=== PATIENT | male | born 1995 | race Caucasian/White ===

== ENCOUNTER 2024-07-09 20:10 | Emergency (ER) | payer SELFPAY ==
[~2024-07-09] VITALS: Ht 177.8 cm; Wt 97.5 kg
[2024-07-09 21:22] LABS: BASOPHILS % (AUTO) 0.3 % (0.0-2.0); EOSINOPHILS # (AUTO) 0.2 K/uL (0.0-0.7); EOSINOPHILS % (AUTO) 2.1 % (0.0-6.0); HEMATOCRIT 46 % (39-51); HEMOGLOBIN 15.4 g/dL (13.5-17.5); LYMPHOCYTES # (AUTO) 2.5 K/uL (0.8-4.8); MEAN CORPUSCULAR HEMOGLOBIN 30 PG (26.0-33.0); MEAN CORPUSCULAR HGB CONC 33 g/dl (31.0-36.0); MEAN CORPUSCULAR VOLUME 90 fL (80-96); MONOCYTES # (AUTO) 1.1 K/uL (0.1-1.30); MONOCYTES % (AUTO) 13.7 % (2.0-12.0); NEUTROPHILS # (AUTO) 4.3 K/uL (1.8-8.9); NEUTROPHILS % (AUTO) 52.9 % (43.0-81.0); PLATELET COUNT (AUTO) 307 K/uL (150-450); RED BLOOD CELL COUNT(AUTO) 5.12 MIL/uL (4.5-6.0); RED CELL DISTRIBUTION WIDTH 13.8 % (11.5-15.0); WHITE BLOOD COUNT (AUTO) 8.1 K/uL (4.3-11.0)
[2024-07-09 21:33] LABS: CALCIUM, SERUM 9.5 mg/dL (8.5-10.1); CARBON DIOXIDE 30 mmol/L (21-32); CHLORIDE 101 mmol/L (98-107); GLUCOSE 92 mg/dL (74-106); POTASSIUM 4.2 mmol/L (3.5-5.1); SODIUM SERUM 140 mmol/L (136-145); UREA NITROGEN, BLOOD 15 mg/dL (7-18)
[2024-07-09 21:44] LABS: BARBITURATE, URINE NEGATIVE (NEGATIVE); BENZODIAZEPINE, URINE NEGATIVE (NEGATIVE); CANNABINOID, URINE NEGATIVE (NEGATIVE); OPIATE, URINE NEGATIVE (NEGATIVE); PHENCYCLIDINE SCREEN,URINE NEGATIVE (NEGATIVE)
[2024-07-09 21:45] LABS: AMPHETAMINE, URINE POSITIVE (NEGATIVE); COCCAINE, URINE POSITIVE (NEGATIVE)
[2024-07-09 21:46] LABS: ALANINE AMINOTRANSFERASE 46 U/L (12-78); ALBUMIN 4.5 g/dL (3.4-5.0); ALCOHOL, BLOOD < 3 mg/dL (0-10); ALKALINE PHOSPHATASE 76 U/L (46-116); ASPARTATE AMINOTRANSFERASE 54 U/L (15-37); BILIRUBIN,DIRECT 0.2 mg/dL (0.0-0.2); BILIRUBIN,TOTAL 0.8 mg/dL (0.2-1.0); TOTAL PROTEIN, SERUM 8.4 g/dL (6.4-8.2)
[2024-07-09 21:47] LABS: ACETAMINOPHEN 0 ug/ml (10-30); SALICYLATE 1.1 mg/dL (2.8-20.0)
[2024-07-09 22:07] LABS: APPEARANCE,URINE CLEAR (CLEAR); BILIRUBIN,URINE NEGATIVE (NEGATIVE); BLOOD, URINE NEGATIVE Ery/uL (NEGATIVE); COLOR,URINE YELLOW (YELLOW); KETONES,URINE TRACE mg/dL (NEGATIVE); LEUKOCYTE ESTERASE ,URINE NEGATIVE (NEGATIVE); NITRITE, URINE NEGATIVE (NEGATIVE); PROTEIN,URINE NEGATIVE (NEGATIVE); UGLUCOSE NEGATIVE (NEGATIVE); UROBILINOGEN,URINE 0.2 EU/dL (0.2)
[2024-07-09 22:11] LABS: ADD URINE CULTURE NO; BACTERIA,URINE None seen /HPF (None Seen); RBC,URINE 0-2 /HPF (0-2); WBC,URINE 0-2 /HPF (0-3)
[2024-07-09 22:12] LABS: MUCUS,URINE Few /LPF (None Seen); SQUAMOUS EPITHELIAL CELL,UR 0-2 /HPF (None Seen)
[2024-07-09 22:17] VITALS: BP 126/69; TEMP 98.2; O2SAT 97
== END 2024-07-09 22:24 | disposition home or self-care (01) ==
LOC: ER 20:16
DX: F19.10 Other psychoactive substance abuse, uncomplicated (principal); F22 Delusional disorders; F17.200 Nicotine dependence, unspecified, uncomplicated
CPT/HCPCS: 36415; 80048-TC; 80076-TC; 81001; 85025-TC; G0480